=== PATIENT | female | born 1990 | race Caucasian/White ===

== ENCOUNTER 2019-03-26 02:27 | Emergency (ER) | payer OTHER ==
[~2019-03-26] VITALS: Ht 170.2 cm; Wt 65.8 kg
--- NOTE | 2019-03-26 02:27 | NUR ---
Arrial: 28 year old female brought into ER by [facility] with c/o Chest pain and anxiety.
[2019-03-26 02:30] VITALS: BP 123/77
--- NOTE | 2019-03-26 02:43 | ER.PDOC ---
General Chief Complaint: Requesting Medical Care Stated Complaint: CHEST PAIN Time seen by MD: 02:41 Source: patient Exam Limitations: no limitations History of Present Illness Initial Comments Chest pain, took Xanax prior to coming to the ED. Severity/Quality: moderate Radiation: no radiation Activities at Onset: none Prior CP/Workup: No Prior Chest Pain Nitro Today/Relief: No Nitro Taken Today Associated Symptoms: denies symptoms Allergies: Coded Allergies: diphenhydramine HCl (Verified Allergy, Unknown, 03/26/19) Past Medical History Medical History: other (anxiety) Surgical History: no surgical history Social History Drug Use: none Constitutional: no symptoms reported EENTM: no symptoms reported Respiratory: no symptoms reported Cardiovascular: see HPI Gastrointestinal: no symptoms reported Genitourinary: no symptoms reported All Other Systems: Reviewed and Negative Physical Exam General Appearance: Anxious Neck: Non-Tender, Full Range of Motion, Supple, Normal Inspection Respiratory: chest non-tender, lungs clear, normal breath sounds, no respiratory distress, no accessory muscle use Cardiovascular: Normal Peripheral Pulses, Regular Rate, Rhythm, No Edema, No Gallop, No JVD, No Murmur Gastrointestinal: Normal Bowel Sounds, No Organomegaly, No Pulsatile Mass, Non Tender, Soft Extremities: Normal Range of Motion, Non-Tender, Normal Inspection, No Pedal Edema, No Calf Tenderness, Normal Capillary Refill 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, No Motor/Sensory Deficits, Alert, Normal Mood/Affect, Oriented x 3 Skin: Normal Color, Warm/Dry Results/Orders Results/Orders Orders - YOLANDE BRADLEY MD Cbc With Auto Diff (03/26/19 02:39) Comprehensive Metabolic Panel (03/26/19 02:39) Creatine Kinase (03/26/19 02:39) Troponin I (03/26/19 02:39) D-Dimer (03/26/19 02:39) Xr Chest 1v (03/26/19 02:39) Ekg-Routine (03/26/19 02:39) Vital Signs Date Time Temp Pulse Resp B/P (MAP) Pulse Ox O2 Delivery O2 Flow Rate FiO2 03/26/19 03:16 97.6 60 16 105/68 (80) 100 Nasal [place] 2.00 03/26/19 03:02 98.5 60 16 77/60 (66) 100 Nasal [place] 123.00 03/26/19 03:02 98.5 60 16 03/26/19 02:56 98.5 60 16 100 Nasal [place] 03/26/19 02:30 98.5 62 16 123/77 (92) 100 Nasal [place] 2.00 Laboratory Tests Test 03/26/19 02:54 White Blood Count 4.7 10^3/uL (4.5-11.0) Red Blood Count 4.21 10^6/uL (4.00-5.20) Hemoglobin 11.4 g/dL (12.0-15.0) L Hematocrit 34.8 % (36.0-46.0) L Mean Corpuscular Volume 82.7 fL (78-100) Mean Corpuscular Hemoglobin 27.1 pg (26-34) Mean Corpuscular Hemoglobin Concent 32.8 g/dL (33-37) L Red Cell Distribution Width 14.6 % (11.5-14.5) H Platelet Count 286 10^3/uL (150-400) Mean Platelet Volume 9.4 fL (7.8-11.0) Neutrophils (%) (Auto) 57.6 % (41.0-85.0) Lymphocytes (%) (Auto) 24.7 % (24.0-44.0) Monocytes (%) (Auto) 15.8 % (5.0-12.0) H Neutrophils # (Auto) 2.7 10^3/uL (1.8-7.7) Lymphocytes # (Auto) 1.2 10^3/uL (1.0-4.8) Monocytes # (Auto) 0.7 10^3/uL (0.3-0.8) Absolute Immature Granulocyte (auto 0.01 10^3 u/L (0-2) Immature Granulocytes % 0.20 % (0.00-0.50) Eosinophils % 1.1 % (0.0-5.0) Basophils % 0.6 % (0.0-0.2) H Basophils # 0.0 10^3/uL (0.0-0.1) Eosinophil Count 0.1 10^3/uL (0.0-0.2) D-Dimer 0.24 mg/L (0.19-0.49) Sodium Level 144 mmol/L (132-145) Potassium Level 3.7 mmol/L (3.6-5.2) Chloride Level 108.0 mmol/L (96-109) Carbon Dioxide Level 28.3 mmol/L (20.0-32) Anion Gap 11.4 Blood Urea Nitrogen 10 mg/dL (7-18) Creatinine 0.97 mg/dL (0.59-1.40) Estimated GFR () 81.6 (>/=60) BUN/Creatinine Ratio 10.0 Glucose Level 113 mg/dL (70-110) H Calcium Level 10.0 mg/dL (8.4-10.5) Total Bilirubin 0.4 mg/dL (0.2-1.0) Aspartate Amino Transferase (AST) 13 U/L (0-35) Alanine Aminotransferase (ALT) 15 U/L (12-78) Alkaline Phosphatase 55 U/L (50-136) Total Creatine Kinase 33 U/L (26-192) Troponin I < 0.02 ng/mL (0.00-0.05) Total Protein 7.1 g/dL (6.4-8.2) Albumin 4.0 g/dL (3.4-5.0) Globulin 3.1 EKG/XRAY/CT/US EKG: NSR XRAY: chest (No active disease) Course Sepsis Screening Results: Posi: POSITIVE SEPSIS RISK Duration or Total Time Spent w: 20 mins Vitals & review Data Vital Sign - Last 24 Hours 03/26/19 03/26/19 03/26/19 03/26/19 02:30 02:56 03:02 03:02 Temp 98.5 98.5 98.5 98.5 Pulse 62 60 60 60 Resp 16 16 16 16 B/P (MAP) 123/77 (92) 77/60 (66) Pulse Ox 100 100 100 O2 Delivery Nasal Canula Nasal Canula Nasal [place]ula O2 Flow Rate 2.00 123.00 03/26/19 03:16 Temp 97.6 Pulse 60 Resp 16 B/P (MAP) 105/68 (80) Pulse Ox 100 O2 Delivery Nasal [place] O2 Flow Rate 2.00 Laboratory Tests Test 03/26/19 02:54 White Blood Count 4.7 10^3/uL Red Blood Count 4.21 10^6/uL Hemoglobin 11.4 g/dL Hematocrit 34.8 % Mean Corpuscular Volume 82.7 fL Mean Corpuscular Hemoglobin 27.1 pg Mean Corpuscular Hemoglobin Concent 32.8 g/dL Red Cell Distribution Width 14.6 % Platelet Count 286 10^3/uL Mean Platelet Volume 9.4 fL Neutrophils (%) (Auto) 57.6 % Lymphocytes (%) (Auto) 24.7 % Monocytes (%) (Auto) 15.8 % Neutrophils # (Auto) 2.7 10^3/uL Lymphocytes # (Auto) 1.2 10^3/uL Monocytes # (Auto) 0.7 10^3/uL Absolute Immature Granulocyte (auto 0.01 10^3 u/L Immature Granulocytes % 0.20 % Eosinophils % 1.1 % Basophils % 0.6 % Basophils # 0.0 10^3/uL Eosinophil Count 0.1 10^3/uL D-Dimer 0.24 mg/L Sodium Level 144 mmol/L Potassium Level 3.7 mmol/L Chloride Level 108.0 mmol/L Carbon Dioxide Level 28.3 mmol/L Anion Gap 11.4 Blood Urea Nitrogen 10 mg/dL Creatinine 0.97 mg/dL Estimated GFR () 81.6 BUN/Creatinine Ratio 10.0 Glucose Level 113 mg/dL Calcium Level 10.0 mg/dL Total Bilirubin 0.4 mg/dL Aspartate Amino Transf (AST/SGOT) 13 U/L Alanine Aminotransferase (ALT/SGPT) 15 U/L Alkaline Phosphatase 55 U/L Total Creatine Kinase 33 U/L Troponin I < 0.02 ng/mL Total Protein 7.1 g/dL Albumin 4.0 g/dL Globulin 3.1 Sepsis Infection Criteria Pres: Documented Infection Departure Time of Disposition: 03:36 Disposition: 01 HOME, SELF-CARE Impression: Primary Impression: Anxiety Condition: Stable Referrals: [facility] (PCP) PRIMARY CARE PROVIDER Additional Instructions: Continue home medications F/U with your PCP in 1-2 days Duration or Time Spent with Pa: 60 mins MIRNA,YOLANDE Lewis MD Mar 26, 2019 02:43
--- NOTE | 2019-03-26 02:49 | PCM.EKG ---
[facility] Test Date: 2019-03-26 Test Time: 02:50:45 Pat Name: DEE WELLS Department: Room: Gender: F Health Science Specialist: SANA : 1990 Requested By: YOLANDE BRADLEY Order Number: [id number] Reading MD: Yolande BRADLEY Measurements Intervals [place] Rate: 63 P: 40 IN: 120 QRS: 81 QRSD: 90 T: 51 QT: 418 QTc: 427 Interpretive Statements Normal sinus rhythm Nonspecific ST and T wave abnormality Abnormal ECG No previous ECG available for comparison Electronically Signed On 03-29-2019 0:28:25 CDT by Yolande BRADLEY Please click the below link to view image of tracing.
--- NOTE | 2019-03-26 03:00 | DIREP ---
PROCEDURE:CHEST 1 VIEW COMPARISON:None. INDICATIONS:chest pain FINDINGS: LUNGS/PLEURA:No significant pulmonary parenchymal abnormalities. No effusions. VASCULATURE:Normal. Unremarkable pulmonary vasculature. CARDIAC:Normal. No cardiac silhouette abnormality or cardiomegaly. MEDIASTINUM:Normal. No visible mass or adenopathy. BONES:Normal. No fracture or visible bony lesion. OTHER:Negative. CONCLUSION:Normal examination. Dictated by: Logan Batista MD on 03/26/2019 at 02:58 AM
[2019-03-26 03:02] VITALS: BP_SYST 123; BP_SYST 77; BP_DIAS 60; BP_DIAS 77
[2019-03-26 03:02] LABS: BASOPHIL % 0.6 % (0.0-0.2); EOSINOPHIL # 0.1 10^3/uL (0.0-0.2); EOSINOPHIL % 1.1 % (0.0-5.0); HEMOGLOBIN 11.4 g/dL (12.0-15.0); LYMPHOCYTES # 1.2 10^3/uL (1.0-4.8); LYMPHOCYTES % 24.7 % (24.0-44.0); MEAN CELL HGB 27.1 pg (26-34); MEAN CELL HGB CONCENTRATION 32.8 g/dL (33-37); MEAN CORP VOLUME 82.7 fL (78-100); MEAN PLATELET VOLUME 9.4 fL (7.8-11.0); MONOCYTES # 0.7 10^3/uL (0.3-0.8); MONOCYTES % 15.8 % (5.0-12.0); NEUTROPHIL # 2.7 10^3/uL (1.8-7.7); NEUTROPHILS % 57.6 % (41.0-85.0); RED CELL DISTRIBUTION WIDTH 14.6 % (11.5-14.5); WHITE BLOOD CELL 4.7 10^3/uL (4.5-11.0)
[2019-03-26 03:16] VITALS: BP 105/68
[2019-03-26 03:19] LABS: ALANINE AMINOTRANSFERASE(ML) 15 U/L (12-78); ALKALINE PHOSPHATASE 55 U/L (50-136); ASPARTATE AMINO TRANSFERASE 13 U/L (0-35); CARBON DIOXIDE 28.3 mmol/L (20.0-32); GLUCOSE 113 mg/dL (70-110)
--- NOTE | 2019-03-26 03:22 | NUR ---
Update: Family at bedside, no c/o at this time.
[2019-03-26 03:39] VITALS: BP 109/58
[2019-03-26 03:40] VITALS: BP 109/58
== END 2019-03-26 03:50 | disposition home or self-care (01) ==
LOC: EDBD 02:27 → ER 02:27
DX: F41.9 Anxiety disorder, unspecified (principal); Z88.8 Allergy status to other drugs, medicaments and biological substances
CPT/HCPCS: 36415; 71045; 80053; 82550; 84484; 85025; 85379; 93005; 99285